=== PATIENT | male | born 1970 | race Caucasian/White ===

== ENCOUNTER 2021-06-24 08:40 | Day surgery (SDC) | payer BC ==
[~2021-06-24] VITALS: Ht 177.8 cm; Wt 92.2 kg
[~2021-06-24 08:40] MED LIST: NO HOME MEDICATIONS; PEPCID 20MG TAB20 MG PO
[2021-06-24 09:11] VITALS: BP 111/74; PULSE 79; TEMP 98.3
[2021-06-24 10:10] VITALS: BP 98/77; PULSE 73; TEMP 96.7
[2021-06-24 10:15] VITALS: BP 111/84; PULSE 74
[2021-06-24 10:30] VITALS: BP 106/77; PULSE 68
--- NOTE | 2021-06-24 10:55 | NUR ---
1008 Pt returns from endo procedure via cart and RN assist to [facility] [facility]. Pt ambulates from cart to recliner with RN assist. Monitors on and alarms set. Call light within reach. Report received from this RN. Pt alert and oriented. Pt requests muffins and juice. Pt denies any pain or nausea. 1020 Pt taking food and drink well. No complications noted. 1050 Discharge instructions given to pt and . All questions answered to their satisfaction. Handed to pt are a thank you card and discharge information. 1055 Pt transferred out of the hospital via wheelchair and this RN assist, to private vehicle driven by pt's .
== END 2021-06-24 10:55 | disposition home or self-care (01) ==
LOC: SDCO 08:40 → EDBD 09:30 → SDCO 09:30
DX: Z12.11 Encounter for screening for malignant neoplasm of colon (principal); D12.2 Benign neoplasm of ascending colon; K57.30 Diverticulosis of large intestine without perforation or abscess without bleeding; Z87.891 Personal history of nicotine dependence
CPT/HCPCS: J2405; J2704; J3010; J7030